=== PATIENT | male | born 1980 | race Two or more races ===

== ENCOUNTER 2022-09-08 22:34 | Emergency (ER) | payer MEDICAID ==
[~2022-09-08] VITALS: Ht 188 cm; Wt 124.7 kg
[2022-09-08 22:50] VITALS: BP 146/84
[2022-09-08] MEDS ORDERED: GABA600T12 PO (22:57)
[2022-09-08] MEDS ORDERED: GABAPENTIN 300 MG CAPSULE ONE (22:59)
[2022-09-08] MEDS ORDERED: GABAPENTIN 100 MG CAPSULE PO ONE (23:00)
--- NOTE | 2022-09-08 23:05 | NUR ---
Patient discharged to home in stable condition. Written and verbal after care instructions given. Patient verbalizes understanding of instruction.
== END 2022-09-08 23:05 | disposition home or self-care (01) ==
LOC: ER 22:43
DX: G62.9 Polyneuropathy, unspecified (principal); Z79.899 Other long term (current) drug therapy